=== PATIENT | female | born 2000 | race Caucasian/White ===

== ENCOUNTER 2020-10-12 12:00 | Emergency (ER) | payer SELFPAY ==
--- NOTE | 2020-10-12 14:34 | ER ---
Nurse's Notes [facility] Name: Aida Scott Age: 20 yrs Sex: Female : 2000 Arrival Date: 10/12/2020 Time: 12:03 Bed Waiting Private MD: Diagnosis: Presentation: 10/12 12:07 Chief complaint: Patient states: vaginal bleeding and abd cramping that began this ss morning. Pt reports she had +UPT beginning of September. LMP was end of June. Coronavirus screen: Client denies travel out of the [place] in the last 14 days. Ebola Screen: Patient denies exposure to infectious person. Patient denies travel to an Ebola-affected area in the 21 days before illness onset. Initial Sepsis Screen: Does the patient meet any 2 criteria? No. Patient's initial sepsis screen is negative. Does the patient have a suspected source of infection? No. Patient's initial sepsis screen is negative. Risk Assessment: Do you want to hurt yourself or someone else? Patient reports no desire to harm self or others. Onset of symptoms was October 12, 2020. 12:07 Method Of Arrival: Ambulatory ss 12:07 Acuity: TASHA 3 ss ETCHER HAND: 12:10 LMP 06/2020 Historical: - Allergies: 12:10 Naproxen; ss - Home Meds: 12:10 None [Active]; ss - PMHx: 12:10 None; ss - PSHx: 12:10 None; ss - Immunization history:: Adult Immunizations unknown. - Social history:: Smoking status: Patient reports the use of cigarette tobacco products, smokes one-half pack cigarettes per day. Vital Signs: 12:07 BP 115 / 58; Pulse 61; Resp 15; Temp 97.6(TE); Pulse Ox 99% on R/A; Weight 61.23 kg; ss Height 5 ft. 0 in. (152.40 cm); Pain 6/10; 12:07 Body Mass Index 26.37 (61.23 kg, 152.40 cm) ED Course: 12:03 Patient arrived in ED. as 12:09 Triage completed. ss 12:10 Arm band placed on right wrist. ss 14:17 Alexus Mcfarland FNP-C is [facility]. kb 14:17 Davi Villareal MD is Attending Physician. kb Administered Medications: No medications were administered Outcome: 14:33 Patient left the ED. ll1 Signatures: Alexus Mcfarland, AKIKOC NATHANIEL-Ana Paula Mitchell Shelby, RN RN ss Joseph Baez RN RN ll1
[2020-10-12 14:44] VITALS: BP 115/58; TEMP 97.6; O2SAT 99
== END 2020-10-12 14:33 | disposition left against medical advice (07) ==
LOC: ER 12:00
DX: Z02.9 Encounter for administrative examinations, unspecified (principal)
CPT/HCPCS: 99281